=== PATIENT | female | born 1980 | race American Indian/Alaskan Native ===

== ENCOUNTER 2018-11-09 12:47 | Emergency (ER) | payer SELFPAY ==
--- NOTE | 2018-11-09 12:59 | Emergency Department Report ---
Blank Doc - Documentation Documentation: This is a 37-year-old female that presents with fatigue and bilateral hands/feet tingling sensation. This initial assessment/diagnostic orders/clinical plan/treatment(s) is/are subject to change based on patient's health status, clinical progression and re- assessment by fellow clinical providers in the ED. Further treatment and workup at subsequent clinical providers discretion. Patient/guardians urged not to elope from the ED as their condition may be serious if not clinically assessed and managed. Initial orders include: 1- Patient sent to [facility] for further evaluation and treatment 2- labs 3- UA
[2018-11-09 13:31] LABS: Basophils % (Auto) 0.9 % (0.0-1.8); Hematocrit 36.5 % (30.3-42.9); Hemoglobin 12.7 gm/dl (10.1-14.3); Lymphocytes # (Auto) 1.4 K/mm3 (1.2-5.4); Lymphocytes % (Auto) 37.6 % (13.4-35.0); Mean Corpuscular HGB Conc 35 % (30-34); Mean Corpuscular Volume 84 fl (79-97); Monocytes # (Auto) 0.5 K/mm3 (0.0-0.8); Monocytes % (Auto) 13.9 % (0.0-7.3); Platelet Count 265 K/mm3 (140-440); Red Blood Count 4.37 M/mm3 (3.65-5.03); Red Cell Distribution Width 13.8 % (13.2-15.2)
[2018-11-09 13:46] LABS: BUN/Creatinine Ratio 11; Blood Urea Nitrogen 8 mg/dL (7-17); Calcium 9.1 mg/dL (8.4-10.2); Hemolysis Index 4
--- NOTE | 2018-11-09 13:49 | Emergency Department Report ---
ED Extremity Problem HPI - General Chief complaint: Extremity Problem,Nontraumatic Stated complaint: DIZZINESS/TINGLING IN BOTH HAND/FEET Time Seen by Provider: 11/09/18 12:58 Source: patient Mode of arrival: Ambulatory Limitations: No Limitations - History of Present Illness Initial comments: Patient is 37 years old female with no significant past medical history. Patient presented to the ER complaining of generalized weakness and fatigue associated with numbness in her upper and lower extremity. Patient stated the symptoms been going on for 1 week. Patient denied any fever or chills. No chest pain or shortness of breath. Patient also denied any vaginal bleeding or vaginal discharge. - Related Data Allergies Allergy/AdvReac Type Severity Reaction Status Date / Time No Known Allergies Allergy Unverified 11/09/18 12:49 ED Review of Systems ROS: Stated complaint: DIZZINESS/TINGLING IN BOTH HAND/FEET Other details as noted in HPI Comment: All other systems reviewed and negative Constitutional: denies: chills, fever Respiratory: denies: cough, orthopnea, shortness of breath, SOB with exertion, wheezing Cardiovascular: denies: chest pain, palpitations Gastrointestinal: denies: abdominal pain, nausea, vomiting Musculoskeletal: denies: back pain Neurological: denies: headache, weakness, numbness, paresthesias, confusion, abnormal gait ED Past Medical Hx - Past Medical History Previous Medical History?: Yes Additional medical history: Thyroid - Surgical History Past Surgical History?: Yes Additional Surgical History: Hysterectomy - Social History Smoking Status: Never Smoker Substance Use Type: None ED Physical Exam - General Limitations: No Limitations General appearance: alert, in no apparent distress - Head Head exam: Present: atraumatic, normocephalic, normal inspection - Eye Eye exam: Present: normal appearance, PERRL - ENT ENT exam: Present: normal exam, normal orophraynx, mucous membranes moist - Neck Neck exam: Present: normal inspection, full ROM. Absent: tenderness, meningismus, lymphadenopathy, thyromegaly - Respiratory Respiratory exam: Present: normal lung sounds bilaterally - Cardiovascular Cardiovascular Exam: Present: regular rate, normal rhythm, normal heart sounds - GI/Abdominal GI/Abdominal exam: Present: soft, normal bowel sounds. Absent: distended, tenderness, guarding, rebound, rigid, organomegaly, mass, bruit, pulsatile mass, hernia - Extremities Exam Extremities exam: Present: normal inspection, full ROM, normal capillary refill. Absent: tenderness, pedal edema, calf tenderness - Back Exam Back exam: Present: normal inspection, full ROM. Absent: CVA tenderness (R), CVA tenderness (L), muscle spasm, paraspinal tenderness, vertebral tenderness, rash noted - Neurological Exam Neurological exam: Present: alert, oriented X3, CN II-XII intact, normal gait, reflexes normal - Psychiatric Psychiatric exam: Present: normal mood - Skin Skin exam: Present: warm, intact, normal color ED Course Vital Signs 11/09/18 11/09/18 13:01 13:19 Temperature 98.6 F Pulse Rate 81 Respiratory 16 16 Rate Blood Pressure 138/92 O2 Sat by Pulse 99 Oximetry ED Medical Decision Making - Lab Data Result diagrams: 11/09/18 13:09 11/09/18 13:09 - Medical Decision Making Patient is 37 years old female with no significant past medical history. Patient presented to the ER complaining of generalized weakness and fatigue associated with numbness in her upper and lower extremity. Patient stated the symptoms been going on for 1 week. Patient denied any fever or chills. No chest pain or shortness of breath. Patient also denied any vaginal bleeding or vaginal discharge. Patient remained stable, in no acute distress. Labs reviewed and is unremarkable. Patient advised to follow-up with her primary care physician in the next 2-3 days and to return to the ER. Critical care attestation.: If time is entered above; I have spent that time in minutes in the direct care of this critically ill patient, excluding procedure time. ED Disposition Clinical Impression: Generalized weakness Disposition: DC-01 TO HOME OR SELFCARE Is pt being admited?: No Condition: Stable Instructions: Weakness (ED) Referrals: HANH POWERS MD [Primary Care Provider] - 3-5 Days
[2018-11-09 14:24] LABS: Bilirubin,Urine NEG (Negative); Blood,Urine SM (Negative); Color,Urine Straw (Yellow); Protein,Urine <15 mg/dL mg/dL (Negative); Urobilinogen,Urine < 2.0 mg/dL (<2.0)
[2018-11-09 15:04] VITALS: BP 118/77
== END 2018-11-09 15:39 | disposition home or self-care (01) ==
LOC: ED 12:47
DX: R53.83 Other fatigue (principal); R53.1 Weakness; Z90.710 Acquired absence of both cervix and uterus
CPT/HCPCS: 36415; 80048; 81001; 82962; 84439; 84443; 84481; 84703; 85025; 99283

== ENCOUNTER 2019-03-01 09:38 | Emergency (ER) | payer BC ==
[2019-03-01 09:45] VITALS: BP 130/81
--- NOTE | 2019-03-01 09:55 | Emergency Department Report ---
ED Back Pain/Injury HPI - General Chief Complaint: Extremity Problem,Nontraumatic Stated Complaint: RT LEG PAIN/SWELLING Time Seen by Provider: 03/01/19 09:53 Source: patient Limitations: No Limitations - History of Present Illness Initial Comments: 38 YO AA FEMALE COMES TO ER 2.5 W P WALKING A 5K AND DEVELOPING R CALF PAIN. NO TRAUMA. PERSISTENT PAIN DESPITE OTC MOTRIN. AMBULATORY. NO FALL OR TRAUMA. NO HX OF THE SAME. -: week(s) Similar Symptoms Previously: No Place: home Radiation: none Severity: mild Quality: sharp Consistency: intermittent Improves With: immobilization Worsens With: movement Associated Symptoms: denies other symptoms - Related Data Previous Rx's Medication Instructions Recorded Last Taken Type Ibuprofen [Motrin] 800 mg PO Q8HR PRN #30 tablet 03/01/19 Unknown Rx Allergies Allergy/AdvReac Type Severity Reaction Status Date / Time No Known Allergies Allergy Verified 03/01/19 09:46 ED Review of Systems ROS: Stated complaint: RT LEG PAIN/SWELLING Other details as noted in HPI Comment: All other systems reviewed and negative ED Past Medical Hx - Past Medical History Thyroid, scoliosis, hypothyroidism Surgical history: no surgical history Psychiatric history: no pertinent history Family history: no significant family history ED Back Pain Physical Exam - Exam General: Vital signs noted. No distress. Alert and acting appropriately. Back/Abdomen: No Abdominal Tenderness, No Perithoracic Tenderness, No Perilumbar Tenderness, No Sacroiliac Tenderness, No Flank Tenderness, No Straight Leg Raise Pain Neuro: Yes Normal Sensation, Yes Normal DTR's, Yes Normal Gait, No Motor Weakness ED Course Vital Signs 03/01/19 09:39 Temperature 97.8 F Pulse Rate 62 Respiratory 17 Rate Blood Pressure 130/81 [Right] O2 Sat by Pulse 99 Oximetry ED Medical Decision Making - Radiology Data Radiology results: report reviewed, image reviewed - Medical Decision Making US NEG FOR DVT FULL ROM NEG HOMANS NO EDEMA DP PLUS 2 AMBULATORY NO TACHYCARDIA NO HYPOTENSION NO CP NO SOB NO MECHANISM FOR BONE ETIOLOGY DC HOME WITH RICE AND FOLLOW UP WITH PCP Vital Signs 03/01/19 09:39 Temperature 97.8 F Pulse Rate 62 Respiratory 17 Rate Blood Pressure 130/81 [Right] O2 Sat by Pulse 99 Oximetry - Differential Diagnosis RO DVT Critical care attestation.: If time is entered above; I have spent that time in minutes in the direct care of this critically ill patient, excluding procedure time. ED Disposition Clinical Impression: Leg pain Disposition: DC-01 TO HOME OR SELFCARE Is pt being admited?: No Does the pt Need Aspirin: No Condition: Stable Additional Instructions: NO DVT ON ULTRASOUND WARM COMPRESSES REST ELEVATE HYDRATE WELL MOTRIN FOR PAIN FOLLOW UP WITH PCP/ORTHO MD IF PERSISTS Prescriptions: Ibuprofen [Motrin] 800 mg PO Q8HR PRN #30 tablet PRN Reason: Pain, Moderate (4-6) Referrals: MADHU RIVERA MD [Staff Physician] - 3-5 Days NEREYDA THEODORE MD [Staff Physician] - 3-5 Days Time of Disposition: 10:53
--- NOTE | 2019-03-01 11:39 | Vascular Lab Report ---
DUPLEX DOPPLER LOWER EXTREMITY VEINS, RIGHT INDICATION: Right calf pain and swelling. TECHNIQUE: Duplex doppler imaging was performed through the veins of the right lower extremity using venous compression and other maneuvers. COMPARISON: No relevant prior imaging study available. FINDINGS: Right Common femoral vein: Negative. Right Superficial femoral vein: Negative. Right Popliteal vein: Negative. Right Calf veins: Negative. Additional findings: None.. IMPRESSION: No sonographic evidence for DVT in the right lower extremity. Signer Name: Billy Flores Jr, MD Signed: 03/01/2019 11:34 AM Workstation Name: [id number]
== END 2019-03-01 11:53 | disposition home or self-care (01) ==
LOC: ED 09:38
DX: M79.604 Pain in right leg (principal)

== ENCOUNTER 2020-05-28 06:43 | Emergency (ER) | payer BC, OTHER ==
[2020-05-28 07:36] VITALS: BP 138/92
[2020-05-28] MEDS ORDERED: KETOROLAC 30 MG/1 ML INJ IM ONE (13:08)
--- NOTE | 2020-05-28 13:14 | Emergency Department Report ---
ED General Adult HPI - General Chief complaint: Back Pain/Injury Stated complaint: SEVERE LOWER BACK PAIN RADIATING TO LEGS Time Seen by Provider: 05/28/20 11:49 Source: patient Mode of arrival: Ambulatory Limitations: No Limitations - History of Present Illness Initial comments: 39-year-old -[place] female patient presents with complaints of right lower back pain x3 days. Patient states the pain started immediately after lifting a heavy patient at work. She states the pain radiates down her right buttock into her right thigh. She also reports some a burning sensation and states the pain worsens with sitting and lying on her buttock. Patient rates her pain as a 9/10 in severity and states ibuprofen is not helping. Denies any leg swelling, loss of bladder/bowel control, saddle paresthesias, or difficulty with ambulation. - Related Data Previous Rx's Medication Instructions Recorded Last Taken Type Ibuprofen [Motrin] 800 mg PO Q8HR PRN #30 tablet 03/01/19 Unknown Rx Diclofenac Sodium 75 mg PO BID PRN 7 Days #14 05/28/20 Unknown Rx tablet. Prednisone [predniSONE 10 mg 10 mg PO .TAPER #1 tab.ds.pk 05/28/20 Unknown Rx (6-Day Pack, 21 Tabs)] methOCARBAMOL [Robaxin TAB] 1,500 mg PO Q8H PRN #30 tablet 05/28/20 Unknown Rx Allergies Allergy/AdvReac Type Severity Reaction Status Date / Time No Known Allergies Allergy Verified 05/28/20 07:32 ED Review of Systems ROS: Stated complaint: SEVERE LOWER BACK PAIN RADIATING TO LEGS Other details as noted in HPI Constitutional: denies: fever, malaise Gastrointestinal: denies: abdominal pain, nausea, vomiting Genitourinary: denies: urgency, dysuria, frequency, hematuria Musculoskeletal: denies: joint swelling Skin: denies: change in color Neurological: denies: numbness, paresthesias ED Past Medical Hx - Past Medical History Additional medical history: Thyroid, scoliosis, hypothyroidism - Surgical History Additional Surgical History: Hysterectomy - Social History Smoking Status: Never Smoker Substance Use Type: Alcohol - Medications Home Medications: Home Medications Medication Instructions Recorded Confirmed Last Taken Type Ibuprofen [Motrin] 800 mg PO Q8HR PRN #30 tablet 03/01/19 Unknown Rx Diclofenac Sodium 75 mg PO BID PRN 7 Days #14 05/28/20 Unknown Rx tablet.dr Prednisone [predniSONE 10 mg 10 mg PO .TAPER #1 tab.ds.pk 05/28/20 Unknown Rx (6-Day Pack, 21 Tabs)] methOCARBAMOL [Robaxin TAB] 1,500 mg PO Q8H PRN #30 tablet 05/28/20 Unknown Rx ED Physical Exam - General Limitations: No Limitations General appearance: alert, in no apparent distress, obese - Head Head exam: Present: atraumatic, normocephalic - Eye Eye exam: Present: normal appearance. Absent: scleral icterus - Neck Neck exam: Present: full ROM - Respiratory Respiratory exam: Absent: respiratory distress - Cardiovascular Cardiovascular Exam: Present: regular rate - GI/Abdominal GI/Abdominal exam: Present: soft. Absent: tenderness - Back Exam Back exam: Present: full ROM. Absent: CVA tenderness (L), vertebral tenderness - Expanded Back Exam Expanded Back exam: Absent: saddle anesthesia Back exam: Sciatic Notch Tenderness: Right, Positive Straight Leg Raise: Right - Neurological Exam Neurological exam: Present: alert, oriented X3, normal gait. Absent: motor sensory deficit - Psychiatric Psychiatric exam: Present: normal affect, normal mood - Skin Skin exam: Present: warm, dry, intact, normal color. Absent: rash ED Course Vital Signs 05/28/20 07:33 Temperature 97.8 F Pulse Rate 68 Respiratory 18 Rate Blood Pressure 138/92 O2 Sat by Pulse 99 Oximetry ED Medical Decision Making - Medical Decision Making 39-year-old -[place] female patient presents with complaints of right lower back pain x3 days. Patient states the pain started immediately after l ifting a heavy patient at work. She states the pain radiates down her right buttock into her right thigh. She also reports some a burning sensation and states the pain worsens with sitting and lying on her buttock. Patient rates her pain as a 9/10 in severity and states ibuprofen is not helping. Denies any leg swelling, loss of bladder/bowel control, saddle paresthesias, or difficulty with ambulation. + Right straight leg raise test and tenderness over the right sciatic notch. Will treat with NSAIDs and muscle relaxers. Discussed importance of stretching and follow-up with primary care doctor in 3 to 5 days. Also discussed return precautions in detail with patient who verbalizes understanding. Critical care attestation.: If time is entered above; I have spent that time in minutes in the direct care of this critically ill patient, excluding procedure time. ED Disposition Clinical Impression: Right-sided low back pain with right-sided sciatica Qualifiers: Chronicity: acute Qualified Code(s): M54.41 - Lumbago with sciatica, right side Disposition: TO HOME OR SELFCARE Is pt being admited?: No Condition: Stable Instructions: Sciatica, Sciatica Rehab-SportsMed Prescriptions: Diclofenac Sodium 75 mg PO BID PRN 7 Days #14 tablet.dr PRN Reason: pain Prednisone [predniSONE 10 mg (6-Day Pack, 21 Tabs)] 10 mg PO .TAPER #1 tab.ds.pk methOCARBAMOL [Robaxin TAB] 1,500 mg PO Q8H PRN #30 tablet PRN Reason: muscle spasm/tightness Referrals: HANH POWERS MD [Primary Care Provider] - 3-5 Days Forms: Work/School Release Form(ED)
== END 2020-05-28 13:27 | disposition home or self-care (01) ==
LOC: ED 06:43
DX: M54.41 Lumbago with sciatica, right side (principal); E03.9 Hypothyroidism, unspecified; Z90.710 Acquired absence of both cervix and uterus; Z79.899 Other long term (current) drug therapy
CPT/HCPCS: 96372; 99282; J1885